=== PATIENT | male | born 1965 | race Caucasian/White ===

== ENCOUNTER 2017-09-02 17:20 | Emergency (ER) | payer SELFPAY ==
[~2017-09-02] VITALS: Ht 182.9 cm; Wt 88.5 kg
[2017-09-02] MEDS ORDERED: IV NORMAL SALINE 1000ML BAG 1,000 ML IV ONE (17:30)
[2017-09-02] MEDS ORDERED: ONDANSETRON PF 4 MG/2 ML VIAL. IV ONE (17:45)
[2017-09-02 17:48] LABS: BASO % 0 % (0-3); EOS % 0 % (0-3); HEMOGLOBIN 15.8 g/dL (13.0-17.5); LYMPH # 1.4 x10^3/uL (1.0-4.8); LYMPH % 9 % (24-48); MEAN CORPUSCULAR HEMOGLOBIN 31 pg (25-35); MEAN CORPUSCULAR HGB CONC 34 g/dL (31-37); MEAN CORPUSCULAR VOLUME 91 fL (79-100); MONO % 4 % (0-9); NEUT % 87 % (31-73); PLATELET COUNT 260 x10^3/uL (140-400); RED BLOOD COUNT 5.14 x10^6/uL (4.30-5.70); RED CELL DISTRIBUTION WIDTH 13.1 % (11.5-14.5); WHITE BLOOD COUNT 14.7 x10^3/uL (4.0-11.0)
[2017-09-02 18:00] LABS: CALCIUM 9.7 mg/dL (8.5-10.1); CREATININE 1.1 mg/dL (0.7-1.3); GFR 70.9; POTASSIUM 3.9 mmol/L (3.5-5.1)
[2017-09-02 18:06] LABS: PLT ESTIMATE ADEQUATE (ADEQUATE)
[2017-09-02 18:08] LABS: TOXIC GRANULATION SLIGHT; TOXIC VACUOLATION SLIGHT
[2017-09-02 18:15] LABS: ALBUMIN 4.4 g/dL (3.4-5.0); ALBUMIN/GLOBULIN RATIO 0.9 (1.0-1.7); TOTAL BILIRUBIN 0.6 mg/dL (0.2-1.0); TOTAL PROTEIN 9.3 g/dL (6.4-8.2)
--- NOTE | 2017-09-02 18:34 | EKG ---
[facility] [address] [place] [address] Test Date: 2017-09-02 Test Time: 17:45:59 Pat Name: CHI MURILLO Department: Room: Gender: M Order Processing Manager: : 1965 Requested By: SHIVAM MCCRAY Order Number: [id number] Reading MD: Tasha Sullivan Measurements Intervals [place] Rate: 74 P: 29 RI: 176 QRS: -3 QRSD: 96 T: 56 QT: 394 QTc: 438 Interpretive Statements SINUS RHYTHM NORMAL ECG Electronically Signed On 09-06-2017 15:31:58 CDT by Tasha Sullivan
[2017-09-02 19:06] LABS: BARBITURATES NEG (NEG); BENZODIAZEPINES NEG (NEG); CANNABINOIDS POS (NEG); COCAINE NEG (NEG); METHADONE NEG (NEG); OPIATES NEG (NEG); PHENCYCLIDINE NEG (NEG)
--- NOTE | 2017-09-02 19:19 | PHYS DOC ---
Past Medical History Past Medical History: Anxiety, Bipolar, Depression Past Surgical History: Other Additional Past Surgical Histo: Bilateral wrist, R elbow Additional Information: Quit 17 years ago Alcohol Use: None Drug Use: Marijuana Adult General Chief Complaint Chief Complaint: SEIZURE HPI HPI Patient is a 51 year old male brought to the ED by EMS with a complaint of a seizure. EMS told me that when they arrived the patient seemed kind of "out of it" but he is markedly improved at this time. Patient tells me he has no idea what happened. He tells me he's never had a seizure before. The patient tells me he does not drink alcohol. He does smoke "weed". He has never had a seizure. He does not take any chronic medications. He has not recently quit taking any medications. Patient quit smoking cigarettes 17 years ago. Patient states about one year ago he fell through a skyline while he was fixing the roof and he fractured both of his wrists and his elbow and had other injuries. He did not have a head injury however. Patient states that he's been sick with a virus for the past 2 days, he's had some fever and chills and some nausea and vomiting. He was feeling a little better the last he remembers. Later, the patient's mother arrived and stated that he does not have any history of seizures or other chronic medical problems other than what is listed above. Review of Systems Review of Systems Constitutional: As in history of present illness HENT: Denies nasal congestion or sore throat [] Respiratory: Denies cough or shortness of breath [] Cardiovascular: Denies chest pain GI: As in history of present illness Musculoskeletal: Denies back pain or joint pain [] Neurologic: Denies headache Current Medications Current Medications Current Medications Medications (Trade) Dose Ordered Sig/Tom Start Time Stop Time Status Last Admin Dose Admin Ondansetron HCl (Zofran) 4 mg 1X ONCE 09/02/17 17:45 09/02/17 17:48 DC 09/02/17 17:51 4 MG Sodium Chloride 1,000 ml @ 1,000 mls/hr 1X ONCE 09/02/17 17:30 09/02/17 18:29 DC 09/02/17 17:47 1,000 MLS/HR Allergies Allergies Allergies Coded Allergies Type Severity Reaction Last Updated Verified No Known Drug Allergies 10/12/15 No Physical Exam Physical Exam Constitutional: Well developed, well nourished, no acute distress, non-toxic appearance. He does appear to be a little vague and may be postictal HENT: Normocephalic, atraumatic, bilateral external ears normal, oropharynx moist, nose normal. [] Eyes: PERRLA, EOMI, conjunctiva normal, no discharge. [] Neck: Normal range of motion, no stridor. [] Cardiovascular:Heart rate regular rhythm, no murmur [] Lungs & Thorax: Bilateral breath sounds clear to auscultation [] Abdomen: Bowel sounds normal, soft, no tenderness, no masses, no pulsatile masses. [] Skin: Warm, dry, no erythema, no rash. [] Extremities: No tenderness, no cyanosis, no clubbing, ROM intact, no edema. [] Neurologic: Alert and oriented X 3, normal motor function, normal sensory function, no focal deficits noted. [] Current Patient Data Vital Signs Vital Signs Date Time Temp Pulse Resp B/P (MAP) Pulse Ox O2 Delivery O2 Flow Rate FiO2 09/02/17 19:30 78 20 150/98 (115) 96 09/02/17 18:28 Room Air 09/02/17 17:26 97.8 97.8 Lab Values Laboratory Tests Test 09/02/17 17:37 09/02/17 18:50 White Blood Count 14.7 x10^3/uL (4.0-11.0) H Red Blood Count 5.14 x10^6/uL (4.30-5.70) Hemoglobin 15.8 g/dL (13.0-17.5) Hematocrit 47.0 % (39.0-53.0) Mean Corpuscular Volume 91 fL (79-100) Mean Corpuscular Hemoglobin 31 pg (25-35) Mean Corpuscular Hemoglobin Concent 34 g/dL (31-37) Red Cell Distribution Width 13.1 % (11.5-14.5) Platelet Count 260 x10^3/uL (140-400) Neutrophils (%) (Auto) 87 % (31-73) H Lymphocytes (%) (Auto) 9 % (24-48) L Monocytes (%) (Auto) 4 % (0-9) Eosinophils (%) (Auto) 0 % (0-3) Basophils (%) (Auto) 0 % (0-3) Neutrophils # (Auto) 12.8 x10^3uL (1.8-7.7) H Lymphocytes # (Auto) 1.4 x10^3/uL (1.0-4.8) Monocytes # (Auto) 0.5 x10^3/uL (0.0-1.1) Eosinophils # (Auto) 0.0 x10^3/uL (0.0-0.7) Basophils # (Auto) 0.0 x10^3/uL (0.0-0.2) Segmented Neutrophils % 84 % (35-66) H Lymphocytes % 12 % (24-48) L Monocytes % 4 % (0-10) Toxic Granulation Slight Toxic Vacuolation Slight Platelet Estimate Adequate (ADEQUATE) Sodium Level 139 mmol/L (136-145) Potassium Level 3.9 mmol/L (3.5-5.1) Chloride Level 101 mmol/L (98-107) Carbon Dioxide Level 20 mmol/L (21-32) L Anion Gap 18 (6-14) H Blood Urea Nitrogen 19 mg/dL (8-26) Creatinine 1.1 mg/dL (0.7-1.3) Estimated GFR (Cockcroft-Gault) 70.9 BUN/Creatinine Ratio 17 (6-20) Glucose Level 164 mg/dL (70-99) H Lactic Acid Level 7.0 mmol/L (0.4-2.0) *H Calcium Level 9.7 mg/dL (8.5-10.1) Total Bilirubin 0.6 mg/dL (0.2-1.0) Aspartate Amino Transferase (AST) 19 U/L (15-37) Alanine Aminotransferase (ALT) 22 U/L (16-63) Alkaline Phosphatase 90 U/L (46-116) Troponin I Quantitative < 0.017 ng/mL (0.000-0.055) BZ-Sce-Y-Type Natriuretic Peptide 113 pg/mL (0-124) Total Protein 9.3 g/dL (6.4-8.2) H Albumin 4.4 g/dL (3.4-5.0) Albumin/Globulin Ratio 0.9 (1.0-1.7) L Urine Opiates Screen Neg (NEG) Urine Methadone Screen Neg (NEG) Urine Barbiturates Neg (NEG) Urine Phencyclidine Screen Neg (NEG) Urine Amphetamine/Methamphetamine Neg (NEG) Urine Benzodiazepines Screen Neg (NEG) Urine Cocaine Screen Neg (NEG) Urine Cannabinoids Screen Pos (NEG) Urine Ethyl Alcohol Neg (NEG) Laboratory Tests 09/02/17 17:37 Laboratory Tests 09/02/17 17:37 EKG EKG 12-lead EKG read by me. Sinus rhythm. Heart rate 74. There are no acute ST or T wave changes indicative of ischemia or infarction. No STEMI. 1745[] Radiology/Procedures Radiology/Procedures [] Course & Med Decision Making Course & Med Decision Making Pertinent Labs and Imaging studies reviewed. (See chart for details) 51-year-old male brought to the ED by EMS after a reported generalized seizure. I did not have the opportunity to talk to anyone who witnessed the seizure but it was described to EMS and sounds like he was postictal on their arrival. Labs were obtained and do correlate with a likely seizure with elevated lactic acid and leukocytosis in the setting of a healthy appearing patient. Urine drug screen positive only for marijuana, which the patient stated he does smoke marijuana. Patient rested comfortably in the ED, his mother arrived, and he had no seizure activity. When I revisited the patient, he seems much more alert and stated that he did not remember talking to me when he first arrived. I believe he was postictal at that time. We discussed the diagnosis of new onset seizure. I strongly cautioned him that he is not allowed to drive whatsoever until he is released to do so by a neurologist. I had this discussion in front of his mother. I believe the patient is stable for discharge. I did not identify the reason for his seizure. He's had no drug use and no drug withdrawal that would cause this. No cardiac etiology was identified. Outpatient neurology follow-up would be appropriate. See instructions for plan. [] Dragon Disclaimer Dragon Disclaimer This electronic medical record was generated, in whole or in part, using a voice recognition dictation system. Departure Departure Impression: Primary Impression: New onset seizure Additional Impression: Marijuana smoker Disposition: 01 HOME, SELF-CARE Condition: IMPROVED Referrals: NO PCP (PCP) Patient Instructions: Seizure, Adult Additional Instructions: As we discussed, you had a generalized seizure today. We were not able to determine what caused your seizure. Make a follow-up appointment with neurology to see if any medications or further testing is needed. No driving whatsoever until neurologist releases you to drive. Also, do not climb ladders, don't be on a roof, no swimming, do not do anything that could put you in harm's way if you were to have another seizure. Problem Qualifiers SHIVAM MCCRAY MD Sep 02, 2017 19:19
[2017-09-02 19:30] VITALS: BP 150/98
== END 2017-09-02 19:45 | disposition home or self-care (01) ==
LOC: ER 17:20
DX: R56.9 Unspecified convulsions (principal); F12.10 Cannabis abuse, uncomplicated; R50.9 Fever, unspecified; R11.2 Nausea with vomiting, unspecified; F41.9 Anxiety disorder, unspecified; F31.9 Bipolar disorder, unspecified; Z87.891 Personal history of nicotine dependence
CPT/HCPCS: 36415; 80053; 80307; 83605; 83880; 84484; 85007; 85025; 93005; 96361; 96374; 99285; J2405; J7030; G0479